=== PATIENT | male | born 1950 | race Hispanic/Latino ===

== ENCOUNTER 2020-10-30 06:38 | Day surgery (SDC) | payer MEDICARE ==
[2020-10-30] MEDS ORDERED: SODIUM CHLORIDE 0.9% 1000 ML IV SOLN IV ONE (07:11)
[2020-10-30 07:25] LABS: Basophils % (Auto) 0.3 % (0.0-1.8); Eosinophils # (Auto) 0.5 K/mm3 (0.0-0.4); Eosinophils % (Auto) 8.5 % (0.0-4.3); Hematocrit 47.8 % (35.5-45.6); Hemoglobin 16.6 gm/dl (11.8-15.2); Lymphocytes # (Auto) 1.9 K/mm3 (1.2-5.4); Mean Corpuscular HGB Conc 35 % (32-34); Mean Corpuscular Volume 88 fl (84-94); Monocytes # (Auto) 0.6 K/mm3 (0.0-0.8); Monocytes % (Auto) 9.9 % (0.0-7.3); Platelet Count 178 K/mm3 (140-440); Red Blood Count 5.44 M/mm3 (3.65-5.03); Red Cell Distribution Width 14.1 % (13.2-15.2)
[2020-10-30 07:35] LABS: INR 1.14 (0.87-1.13)
[2020-10-30 07:36] LABS: Partial Thromboplastin Time 36.4 Sec. (24.2-36.6)
[2020-10-30 07:39] LABS: BUN/Creatinine Ratio 15; Blood Urea Nitrogen 16 mg/dL (9-20); Calcium 9.5 mg/dL (8.4-10.2); Hemolysis Index 4
--- NOTE | 2020-10-30 07:44 | Anesthesia Consultation ---
Anesthesia Consult and Med Hx Date of service: 10/30/20 - Airway Anesthetic Teeth Evaluation: Good ROM Head & Neck: Adequate Mental/Hyoid Distance: Adequate Mallampati Class: Class II Intubation Access Assessment: Probably Good - Pre-Operative Health Status ASA Pre-Surgery Classification: ASA3 Proposed Anesthetic Plan: MAC - Pulmonary Hx Smoking: Yes (past smoker) Hx Asthma: No Hx Respiratory Symptoms: No SOB: No COPD: No Home Oxygen Therapy: No Hx Pneumonia: No Hx Sleep Apnea: No - Cardiovascular System Hx Hypertension: Yes Hx Coronary Artery Disease: No (cardiac cath schedule 11/13/20) Hx Heart Attack/AMI: No Hx Angina: No Hx Percutaneous Transluminal Coronary Angioplasty (PTCA): No Hx Cardia Arrhythmia: Yes (Afib) Hx Pacemaker: No Hx Internal Defibrillator: No Hx Valvular Heart Disease: No Hx Heart Murmur: No Hx Peripheral Vascular Disease: No - Central Nervous System Hx Neuromuscular Disorder: No Hx Seizures: No CVA: No Hx Back Pain: No Hx Psychiatric Problems: No - Gastrointestinal Hx Ulcer: No Hx Gastroesophageal Reflux Disease: No - Endocrine Hx Renal Disease: No Hx End Stage Renal Disease: No Hx Cirrhosis: No Hx Liver Disease: No Hx Insulin Dependent Diabetes: No Hx Non-Insulin Dependent Diabetes: No Hx Thyroid Disease: No Hx Hypothyroidism: No Hx Hyperthyroidism: No - Hematic Hx Anemia: No Hx Sickle Cell Disease: No - Other Systems Hx Alcohol Use: Yes (occ) Hx Substance Use: No Hx Cancer: No Hx Obesity: Yes
--- NOTE | 2020-10-30 07:48 | Anesthesia Day of Surgery ---
Anesthesia Day of Surgery - Day of Surgery Patient Examined: Yes Patient H&P Reviewed: Yes Patient is NPO: Yes
[2020-10-30] MEDS ORDERED: ATROPINE 0.1% (1 MG/10 ML) CARDIAC SYRINGE ONE (08:14)
[2020-10-30] MEDS ORDERED: AMIODARONE 150 MG/3 ML INJ IV ONE (08:17)
[2020-10-30] MEDS ORDERED: LIDOCAINE (1%) 10 MG/1 ML VIAL 20 ML MDV ONE (08:34)
[2020-10-30] MEDS ORDERED: propofoL 200 MG/20 ML VIAL IV ONE (08:34)
[2020-10-30] MEDS ORDERED: PHENYLEPHRINE/NS 1,000 MCG/10 ML SYRINGE (OR USE) IV ONE (08:35)
[2020-10-30 09:56] VITALS: BP 112/75
--- NOTE | 2020-10-30 10:13 | Post Anesthesia Evaluation ---
- Post Anesthesia Evaluation Patient Participated: Yes Airway Patent: Yes Stable Respiratory Function: Yes Nausea/Vomiting: No Temp > 96.8F: Yes Pain Manageable: Yes Adequeate Hydration: Yes Anesthesia Complications: No Block Receding Appropriately: Not Applicable Patient on Ventilator: No
--- NOTE | 2020-10-30 10:50 | Cardiac Catherization Report ---
CARDIOVERSION REPORT REFERRING PHYSICIAN: Dr. Bernabe Morrison INDICATION FOR PROCEDURE: The patient is a very pleasant 70-year-old gentleman with atrial fibrillation diagnosed several months ago, sees Dr. Paul Moore as his primary physician and was started on anticoagulation, uninterrupted systemic anticoagulation for 3 months, brought here for elective cardioversion. ANESTHESIA: At bedside. Risks, benefits, alternatives discussed prior to obtaining informed consent. PROCEDURE IN DETAIL: The patient was brought to the stress lab in a postabsorptive state. Anesthesia is at bedside. Once adequate anesthesia was obtained, we turned our attention to cardioversion. We confirmed the patient is in atrial fibrillation. The patient received 1 shock of 200 joules without successful cardioversion. The patient received a second shock of 250 joules, had a short burst of VF. Subsequently, shocked again within 3 or 4 seconds and reverted to sinus rhythm. Successful cardioversion. No complications. The patient is being recovered by Anesthesia and doing well. Final EKG shows sinus rhythm. CONCLUSIONS: Successful elective cardioversion of atrial fibrillation, resumption of sinus rhythm. No immediate complications identified. He will follow up with me in the office. JOB# [id number] MCKAYLA/CALLI
== END 2020-10-30 10:16 | disposition home or self-care (01) ==
LOC: CATHLABREC 06:38
PROVIDERS: ATTEND Internal Medicine
DX: I48.91 Unspecified atrial fibrillation (principal); I42.9 Cardiomyopathy, unspecified; E66.9 Obesity, unspecified; I10 Essential (primary) hypertension; Z72.89 Other problems related to lifestyle; Z80.8 Family history of malignant neoplasm of other organs or systems; Z83.3 Family history of diabetes mellitus; Z68.31 Body mass index [BMI] 31.0-31.9, adult; Z79.899 Other long term (current) drug therapy; Z87.891 Personal history of nicotine dependence; Z82.49 Family history of ischemic heart disease and other diseases of the circulatory system
CPT/HCPCS: 36415; 80048; 85025; 85610; 85730; 92960; 93005; J2370; J2704; J7030; J0282; J0461

== ENCOUNTER 2020-11-18 06:27 | Day surgery (SDC) | payer MEDICARE ==
[2020-11-18] MEDS ORDERED: ASPIRIN EC 325 MG TAB PO NR (06:51)
[2020-11-18] MEDS ORDERED: SODIUM CHLORIDE 0.9% 500 ML 500 ML IV SCH (07:00)
[2020-11-18 07:10] LABS: Basophils # (Auto) 0.1 K/mm3 (0.0-0.1); Basophils % (Auto) 1.4 % (0.0-1.8); Eosinophils # (Auto) 0.8 K/mm3 (0.0-0.4); Eosinophils % (Auto) 10.3 % (0.0-4.3); Hematocrit 47.9 % (35.5-45.6); Hemoglobin 16.4 gm/dl (11.8-15.2); Lymphocytes # (Auto) 1.9 K/mm3 (1.2-5.4); Lymphocytes % (Auto) 25.9 % (13.4-35.0); Mean Corpuscular HGB Conc 34 % (32-34); Mean Corpuscular Volume 88 fl (84-94); Monocytes # (Auto) 0.8 K/mm3 (0.0-0.8); Monocytes % (Auto) 10.2 % (0.0-7.3); Platelet Count 209 K/mm3 (140-440); Red Blood Count 5.44 M/mm3 (3.65-5.03); Red Cell Distribution Width 14.6 % (13.2-15.2)
[2020-11-18 07:18] LABS: INR 0.97 (0.87-1.13)
[2020-11-18 07:19] LABS: Partial Thromboplastin Time 33.1 Sec. (24.2-36.6)
[2020-11-18 07:34] LABS: BUN/Creatinine Ratio 13; Blood Urea Nitrogen 13 mg/dL (9-20); Calcium 9.8 mg/dL (8.4-10.2); Hemolysis Index 7
[2020-11-18] MEDS ORDERED: fentaNYL 100 MCG/2 ML INJ ONE (07:35)
[2020-11-18] MEDS ORDERED: VERAPAMIL 5 MG/2 ML INJ ONE (07:35)
[2020-11-18] MEDS ORDERED: MIDAZOLAM 2 MG/2 ML INJ ONE (07:35)
[2020-11-18] MEDS ORDERED: HEPARIN/NS 5000 UNIT/500ML 1,000 ML IR ONE (07:35)
[2020-11-18] MEDS: LIDOCAINE (2%) 20 MG/1 ML VIAL 20 ML MDV INFILTRATI ONE ×2 (08:17→08:20)
[2020-11-18] MEDS: HEPARIN 10,000 UNITS/10 ML VIAL ONE ×2 (08:17→08:22)
[2020-11-18] MEDS: NITROGLYCERIN SYRINGE 3 ML ONE ×2 (08:18→08:22)
--- NOTE | 2020-11-18 08:50 | Cardiac Catherization Report ---
REFERRING PHYSICIAN: Bernabe Morrison MD INDICATION FOR PROCEDURE: The patient is a pleasant 70-year-old gentleman with multiple risk factors, found to have an abnormal stress test with dyspnea, thought to be an anginal equivalent, referred for left heart catheterization. Risks, benefits, potential alternatives explained at length prior to obtaining informed consent. PROCEDURE IN DETAIL: The patient was brought to catheterization lab in a postabsorptive state, prepped and draped in sterile fashion. Judd's test in right hand was normal. A 2 mL of 2% lidocaine used to anesthetize the right wrist. A standard 6-Yoruba hydrophilic sheath used to cannulate the right radial artery via modified Seldinger technique. All exchanges performed to exchange a J-tip guidewire. JL3.5 catheter used to engage the left main. No dampening or ventricularization. Cineangiography performed in all projections. JR4 catheter was used to cross the aortic valve under fluoroscopic guidance. Left ventriculography performed in 30 [place] and 30 [place] projections via hand injections, catheter flushed. Manual pullback performed with continuous pressure monitoring. Catheter used to engage the right coronary. No dampening or ventricularization. Cineangiography performed in all projections. Next, catheter removed from the body of wire, sheath removed. Manual pressure used to achieve hemostasis. I directly supervised the administration of moderate sedation with fentanyl and Versed from 8:17 to 8:40 a.m. DATA: The patient remained in normal sinus rhythm throughout the procedure. Aortic pressure is 130/70, LV pressure is 130, LVP of 15 mmHg. Left ventriculography reveals normal systolic performance with estimated ejection fraction of 55-60%. No evidence of aortic stenosis. CORONARY ANATOMY: This is a right dominant system. Right coronary is a moderate sized vessel, courses AV groove, distally bifurcates into posterior and posterolateral branches. 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 This is a small fistula. Left main is short likely dual ostium. LAD is a moderate sized vessel, courses anterior intergroove, wraps around the apex, no significant disease, VIKI 3 flow throughout. Left circumflex, moderate sized vessel, courses AV groove, gives off an OM trunk. No significant disease noted. CONCLUSIONS: 1. No angiographic evidence of significant epicardial coronary disease in this right dominant system. 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 2. 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 3. Normal left ventricular systolic performance, estimated ejection fraction of 55-60%. 4. No evidence of aortic stenosis. 5. Normal LVEDP. Recommend medical management. Continue current medications including Eliquis, amlodipine, and diltiazem. May consider statin therapy as an outpatient, followup with me in the office. Results of procedure explained to the patient and his daughter via telephone. All questions and concerns were addressed. Standard radial care. No immediate complications identified. JOB# [id number] SBM/NTS
[2020-11-18 11:13] VITALS: BP 119/86
--- NOTE | 2020-11-18 14:07 | Short Stay Summary ---
Short Stay Documentation Date of service: 11/18/20 - History H&P: obtained from office - Allergies and Medications Current Medications: Allergies No Known Allergies Allergy (Unverified 10/30/20 07:08) Home Medications Medication Instructions Recorded Confirmed Last Taken Type Apixaban [Eliquis] 5 mg PO BID 10/30/20 11/18/20 11/17/20 History 5 mg amLODIPine [Norvasc] 5 mg PO DAILY 10/30/20 11/18/20 11/17/20 History 5 mg - Brief post op/procedure progress note Date of procedure: 11/18/20 Pre-op diagnosis: abnormal stress test Post-op diagnosis: same Anesthesia: local Estimated blood loss: none Condition: stable - Disposition Condition at discharge: Good Disposition: [id number] TO HOME OR SELFCARE - Discharge Diagnoses (1) Normal coronary arteries Status: Chronic Short Stay Discharge Plan Activity: advance as tolerated Diet: low fat, low cholesterol, low salt Wound: open to air, keep clean and dry, per your surgeon's advice Follow up with: EKTA LESTER DO [Primary Care Provider] - 7 Days HALEY LEE MD [Staff Physician] - 7 Days Forms: CardCath PCI D/C Instructions
== END 2020-11-18 13:53 | disposition home or self-care (01) ==
LOC: CATHLABREC 06:27
PROVIDERS: ATTEND Internal Medicine
DX: R06.09 Other forms of dyspnea (principal); R94.39 Abnormal result of other cardiovascular function study; I48.91 Unspecified atrial fibrillation; E66.9 Obesity, unspecified; Z79.899 Other long term (current) drug therapy; Z87.891 Personal history of nicotine dependence; Z72.89 Other problems related to lifestyle; Z98.890 Other specified postprocedural states; Z83.3 Family history of diabetes mellitus; Z68.30 Body mass index [BMI] 30.0-30.9, adult; Z80.8 Family history of malignant neoplasm of other organs or systems; Z82.49 Family history of ischemic heart disease and other diseases of the circulatory system
CPT/HCPCS: 36415; 80048; 85025; 85610; 85730; 93005; 93458; 99156; 99157; C1894; J1644; J2250; J3010; J7040; Q9967